=== PATIENT | male | born 1995 | race Caucasian/White ===

== ENCOUNTER 2016-10-05 21:09 | Emergency (ER) | payer OTHER ==
[~2016-10-05] VITALS: Ht 188 cm; Wt 184.5 kg
[~2016-10-05 21:09] MED LIST: BACTDS PO; CEPH-443 PO; HYDR-902 PO; IBUP-1542 PO; SULF1TAB7 PO; ULT50 PO; VIC PO; [UNRECOGNIZED DRUG - REMARK]
[2016-10-05 21:10] VITALS: Ht 188 cm; Wt 184.5 kg
[2016-10-05] MEDS ORDERED: CETI10CA PO (23:15)
[2016-10-05] MEDS ORDERED: ALBU8.5H3 INH (23:15)
[2016-10-05] MEDS ORDERED: FLUT9.9S NASAL (23:15)
--- NOTE | 2016-10-05 23:19 | ERD ---
ER Documentation Chief Complaint Date/Time DATE: 10/05/16 TIME: 23:16 Chief Complaint colds w/ on/off SOB x 2 days HPI Patient is a 21-year-old male who presents to the ED with allergies and cough for 2 days. He states that he has itchy watery eyes, runny nose, itchy throat and has mild shortness of breath. He states that he does have a history of asthma. He has been using an inhaler which has helped with his symptoms. He would like a refill on albuterol. He did not denies any chest pain, or difficulty breathing. Denies any leg pain or swelling. He denies any headache or dizziness. Denies any abdominal pain, nausea, vomiting or diarrhea. He is not taking any medications for his symptoms besides the albuterol. ROS All systems reviewed and are negative except as per history of present illness. Medications Home Meds Active Scripts Fluticasone Propionate (Flonase Allergy Relief) 9.9 Ml [place].susp, 1 SPRAY NASAL BID, #1 BOTTLE TO EACH NOSTRIL Prov:LANIE JESSICA PA-C 10/05/16 Cetirizine Hcl* (Zyrtec*) 10 Mg Capsule, 10 MG PO DAILY, #30 TAB.CHEW Prov:LANIE JESSICA PA-C 10/05/16 Albuterol Sulfate* (Proair HFA*) 8.5 Gm Hfa.aer.ad, 2 PUFF INH Q4, #1 INHALER Prov:LNAIE JESSICA PA-C 10/05/16 Hydrocodone/Acetaminophen ([place] 10-325 Tablet) 1 Each Tablet, 1 TAB PO Q6H Y for PAIN, #7 TAB Prov:SADIQ MULLINS NP 09/10/16 Tramadol HCl (Tramadol HCl) 50 Mg Tablet, 50 MG PO Q4 Y for PAIN, #10 TAB Prov:ADONAY FRANCO PA-C 09/05/16 Cephalexin* (Keflex*) 500 Mg Capsule, 500 MG PO QID for 7 Days, CAP Prov:ADONAY FRANCO PA-C 09/05/16 Sulfamethoxazole-Trimethoprim* (Bactrim* DS) 800-160 Mg Tab, 1 TAB PO BID for 7 Days, TAB Prov:ADONAY FRANCO PA-C 09/05/16 Cephalexin* (Keflex*) 500 Mg Capsule, 500 MG PO Q6 for 7 Days, CAP Prov:ROSHNI LEE PA-C 06/06/16 Sulfamethoxazole-Trimethoprim* (Bactrim* DS) 800-160 Mg Tab, 1 TAB PO BID, #10 TAB Prov:ROSHNI LEE PA-C 06/06/16 Hydrocodone/Acetaminophen ([place] 10-325 Tablet) 1 Each Tablet, 1 TAB PO Q6H Y for PAIN, #15 TAB Prov:KYLE CRAIG PA-C 06/04/16 Cephalexin* (Keflex*) 500 Mg Capsule, 500 MG PO QID for 7 Days, CAP Prov:KYLE CRAIG PA-C 06/04/16 Ibuprofen* (Motrin*) 600 Mg Tab, 600 MG PO Q6H Y for PAIN AND OR ELEVATED TEMP, #30 TAB Prov:KYLE CRAIG 06/04/16 Sulfamethoxazole-Trimethoprim* (Bactrim* DS) 800-160 Mg Tab, 1 TAB PO DAILY for 7 Days, TAB Prov:KYLE CRAIG 06/04/16 Reported Medications Acetaminophen/Hydrocodone (Vicodin) 1 Tab Tab, 1 TAB PO PRN 08/22/11 Sulfamethoxazole-Trimethoprim* (Bactrim* DS) 1 Tab Tab, 1 TAB PO BID 08/22/11 [Unk Meds Taken] No Conflict Check 08/21/11 Allergies Allergies: Coded Allergies: No Known Allergy (Unverified , 09/05/16) PMhx/Soc Anesthesia Reaction: No Hx Neurological Disorder: No Hx Respiratory Disorders: Yes (asthma) Hx Cardiac Disorders: No Hx Psychiatric Problems: No Hx Miscellaneous Medical Probl: Yes (ALLERGIES) Hx Alcohol Use: No Hx Substance Use: No Hx Tobacco Use: No Smoking Status: Current some day smoker FmHx Family History: No coronary disease, No diabetes, No other Physical Exam Vitals Vital Signs Date Time Temp Pulse Resp B/P Pulse Ox O2 Delivery O2 Flow Rate FiO2 10/05/16 21:10 97.9 81 18 124/61 97 Physical Exam GENERAL: Well-developed, well-nourished male. Appears in no acute distress. HEAD: Normocephalic, atraumatic. EYES: Pupils are equally reactive bilaterally. EOMs grossly intact. No conjunctival erythema. ENT: Moist mucous membranes. No uvula deviation. No kissing tonsils. No exudates. cobblestone pharynx NECK: Supple. No lymphadenopathy or thyromegaly. No meningismus. negative kernig. negative brudinski. LUNG: Clear to auscultation bilaterally. No rhonchi, wheezing, rales or coarse breath sounds. HEART: Regular rate and rhythm. No murmurs, rubs or gallops. ABDOMEN: No scars, ecchymosis or rashes noted. Soft, nontender, and nondistended. Positive bowel sounds in all four quadrants. No rebound tenderness , no guarding. (-) McBurneys point tenderness. No CVA tenderness. BACK: No midline tenderness. Extremities: Equal pulses bilaterally. No peripheral clubbing, cyanosis or edema. No unilateral leg swelling. NEUROLOGIC: Alert and oriented. Moving all four extremities. 5/5 strength in all extremities. Normal speech. Steady gait. negative carlyle sign. SKIN: Normal color. Warm and dry. No rashes or lesions. Capillary refill < 2 seconds Procedures/MDM ER COURSE: I kept the patient and/or family informed of laboratory and diagnostic imaging results throughout the emergency room course. EKG, MONITORS, & DIAGNOSTIC IMAGING: [place] [id number] Radiology Main Line: [phone] DIAGNOSTIC IMAGING REPORT Patient: ARYA LINN : 1995 Age: 21 Sex: M [id number] DOS: 10/05/16 2259 Ordering MD: LANIE JESSICA PA-C Location: FTE Room/Bed: PROCEDURE: XR Chest. CLINICAL INDICATION: Cough. TECHNIQUE: Single frontal view. COMPARISON: 08/23/2014. FINDINGS: The lungs are clear. The heart size is normal. There is no pleural effusion. There is no pneumothorax. IMPRESSION: 1. Normal chest radiograph. 2. No change from 08/23/2014. RPTAT: QQ .Neville Patel MD, MD Date Time Electronically viewed and signed by .Neville Patel MD, MD on 10/05/2016 23:26 .R/ CC: LANIE JESSICA PA-C : MEDICAL DECISION MAKING: This is a 21-year-old male who presents with runny nose, watery eyes, itchy throat.. Vital signs were reviewed. Patient is afebrile. Patient is not hypoxic. Patient is not toxic or ill-appearing. His pulse is 81, O2 sat 97, blood pressure 124/61. Patient likely has allergies. Low suspicion for pneumonia, PE, pneumothorax, ACS, epiglottitis, obstruction, TB, pertussis, meningitis, sepsis. I do not think a cardiac workup is necessary at this time as patient does not show signs of cardiac emergency. He has a very low heart score. He does not have any risk factors. Patient does not show signs of respiratory distress and I do not think he needs a breathing treatment at this time. DISCHARGE: At this time, patient is stable for discharge and outpatient management with no new complaints during the ER course. Patient was sent home with Flonase, Zyrtec and ProAir air albuterol. Patient will be discharged home with instructions to recheck for new or worsening symptoms such as fever, nausea, weakness, LOC and to follow up with primary care in the next 1-2 days. Patient was advised to return to the ER for any new or worsening symptoms. Plan was discussed and patient and/or family understands and agrees. Home instructions were given. Departure Diagnosis: Primary Impression: Cough Additional Impression: Seasonal allergies Allergic rhinitis trigger: unspecified Qualified Code: J30.2 - Seasonal allergic rhinitis, unspecified allergic rhinitis trigger Condition: Stable Patient Instructions: Allergic Rhinitis Additional Instructions: Call your primary care doctor TOMORROW for an appointment during the next 1-2 days.See the doctor sooner or return here if your condition worsens before your appointment time. LANIE JESSICA PA-C Oct 05, 2016 23:19
--- NOTE | 2016-10-05 23:26 | RADRPT ---
PROCEDURE: XR Chest. CLINICAL INDICATION: Cough. TECHNIQUE: Single frontal view. COMPARISON: 08/23/2014. FINDINGS: The lungs are clear. The heart size is normal. There is no pleural effusion. There is no pneumothorax. IMPRESSION: 1. Normal chest radiograph. 2. No change from 08/23/2014. RPTAT: QQ .Neville Patel MD, MD Date Time Electronically viewed and signed by .Neville Patel MD, MD on 10/05/2016 23:26 .R/
[2016-10-05 23:43] VITALS: BP 123/66; PULSE 71; RESP 18; TEMP 98.7
== END 2016-10-05 23:44 | disposition home or self-care (01) ==
LOC: FTE 21:09
DX: R05 Cough (principal); J30.2 Other seasonal allergic rhinitis; F17.210 Nicotine dependence, cigarettes, uncomplicated
CPT/HCPCS: 71010; Z7502

== ENCOUNTER 2017-03-23 13:50 | Emergency (ER) | payer OTHER ==
[~2017-03-23] VITALS: Ht 188 cm; Wt 183.5 kg
[~2017-03-23 13:50] MED LIST changes: +ALBU8.5H3 INH; +CETI10CA PO; +FLUT9.9S NASAL; +TRAM50TA2 PO; -ULT50 PO
[2017-03-23 13:54] VITALS: Ht 188 cm; Wt 183.5 kg
[2017-03-23] MEDS ORDERED: ONDANSETRON (ODT) 4 MG TAB ODT STA (14:53)
[2017-03-23] MEDS ORDERED: LIDOCAINE 2%/EPI MPF (SDV) 20 ML VIAL INJ STA (14:53)
[2017-03-23] MEDS ORDERED: CEPH-443 PO (14:56)
[2017-03-23] MEDS ORDERED: HYDR-902 PO (14:56)
[2017-03-23] MEDS ORDERED: SULF1TAB31 PO (14:56)
--- NOTE | 2017-03-23 14:57 | ERD ---
ER Documentation Chief Complaint Date/Time DATE: 03/23/17 TIME: 14:56 Chief Complaint re check on pilonidal abcess HPI Patient is a 21-year-old male who presents with a pilonidal cyst. He has had swelling to the upper part of his buttocks since Thursday. He started an old prescription for antibiotics on Thursday as well but it is getting worse. He tried to pop it himself but was able to get a small amount of fluid out. It has gotten worse and painful. ROS All systems reviewed and are negative except as per history of present illness. Medications Home Meds Active Scripts Hydrocodone/Acetaminophen ([place] 10-325 Tablet) 1 Each Tablet, 1 TAB PO Q6H Y for PAIN, #7 TAB Prov:TREY QUEEN MD 03/23/17 Sulfamethoxazole/Trimethoprim* (Bactrim Ds* Tablet) 1 Each Tablet, 1 TAB PO BID , #14 TAB Prov:TREY QUEEN MD 03/23/17 Cephalexin* (Keflex*) 500 Mg Capsule, 500 MG PO QID for 7 Days, CAP Prov:TREY QUEEN MD 03/23/17 Fluticasone Propionate (Flonase Allergy Relief) 9.9 Ml [place].susp, 1 SPRAY NASAL BID, #1 BOTTLE TO EACH NOSTRIL Prov:LANIE JESSICA PA-C 10/05/16 Cetirizine Hcl* (Zyrtec*) 10 Mg Capsule, 10 MG PO DAILY, #30 TAB.CHEW Prov:LANIE JESSICA PA-C 10/05/16 Albuterol Sulfate* (Proair HFA*) 8.5 Gm Hfa.aer.ad, 2 PUFF INH Q4, #1 INHALER Prov:LANIE JESSICA PA-C 10/05/16 Hydrocodone/Acetaminophen ([place] 10-325 Tablet) 1 Each Tablet, 1 TAB PO Q6H Y for PAIN, #7 TAB Prov:SADIQ MULLINS NP 09/10/16 Tramadol HCl (Tramadol HCl) 50 Mg Tablet, 50 MG PO Q4 Y for PAIN, #10 TAB Prov:ADONAY FRANCO PA-C 09/05/16 Cephalexin* (Keflex*) 500 Mg Capsule, 500 MG PO QID for 7 Days, CAP Prov:ADONAY FRANCO PA-C 09/05/16 Sulfamethoxazole-Trimethoprim* (Bactrim* DS) 800-160 Mg Tab, 1 TAB PO BID for 7 Days, TAB Prov:ADONAY FRANCO PA-C 09/05/16 Cephalexin* (Keflex*) 500 Mg Capsule, 500 MG PO Q6 for 7 Days, CAP Prov:ROSHNI LEE PA-C 06/06/16 Sulfamethoxazole-Trimethoprim* (Bactrim* DS) 800-160 Mg Tab, 1 TAB PO BID, #10 TAB Prov:ROSHNI LEE 06/06/16 Hydrocodone/Acetaminophen ([place] 10-325 Tablet) 1 Each Tablet, 1 TAB PO Q6H Y for PAIN, #15 TAB Prov:KYLE CRAIG 06/04/16 Cephalexin* (Keflex*) 500 Mg Capsule, 500 MG PO QID for 7 Days, CAP Prov:KYLE CRAIG 06/04/16 Ibuprofen* (Motrin*) 600 Mg Tab, 600 MG PO Q6H Y for PAIN AND OR ELEVATED TEMP, #30 TAB Prov:KYLE CRAIG 06/04/16 Sulfamethoxazole-Trimethoprim* (Bactrim* DS) 800-160 Mg Tab, 1 TAB PO DAILY for 7 Days, TAB Prov:KYLE CRAIG 06/04/16 Reported Medications Acetaminophen/Hydrocodone (Vicodin) 1 Tab Tab, 1 TAB PO PRN 08/22/11 Sulfamethoxazole-Trimethoprim* (Bactrim* DS) 1 Tab Tab, 1 TAB PO BID 08/22/11 [Unk Meds Taken] No Conflict Check 08/21/11 Allergies Allergies: Coded Allergies: No Known Allergy (Unverified , 09/05/16) PMhx/Soc Anesthesia Reaction: No Hx Neurological Disorder: No Hx Respiratory Disorders: Yes (asthma) Hx Cardiac Disorders: No Hx Psychiatric Problems: No Hx Miscellaneous Medical Probl: Yes (ALLERGIES) Hx Alcohol Use: No Hx Substance Use: No Hx Tobacco Use: No FmHx Family History: No diabetes Physical Exam Vitals Vital Signs Date Time Temp Pulse Resp B/P Pulse Ox O2 Delivery O2 Flow Rate FiO2 03/23/17 13:54 99.2 107 18 137/67 99 Physical Exam Const: Moderate distress secondary to pain Head: Atraumatic Eyes: Normal Conjunctiva ENT: Normal External Ears, Nose and Mouth. Neck: Full range of motion..~ No meningismus. Resp: Clear to auscultation bilaterally Cardio: Regular rate and rhythm, no murmurs Abd: Soft, non tender, non distended. Normal bowel sounds Skin: Pilonidal cyst with fluctuance Back: No midline or flank tenderness Ext: No cyanosis, or edema Neur: Awake and alert Psych: Normal Mood and Affect Results 24 hrs Current Medications Medications (Trade) Dose Ordered Sig/Justice Route PRN Reason Start Time Stop Time Status Last Admin Dose Admin Lidocaine/ Epinephrine (Xylocaine 2%/ Epi Mpf(Sdv)) 20 ml ONCE STAT INJ 03/23/17 14:53 03/23/17 14:55 DC Acetaminophen/ Hydrocodone Bitart ([place] (10/325)) 1 tab ONCE ONCE PO 03/23/17 15:00 03/23/17 15:01 Ondansetron HCl (Zofran Odt) 4 mg ONCE STAT ODT 03/23/17 14:53 03/23/17 14:55 DC Procedures/MDM Abscess Incision and Drainage with irrigation by me: Location: Pilonidal Anesthesia: Local 1% Lidocaine with epinephrine Technique: Irrigated. Disrupted loculations w/ instrumentation Packing: None Complications: Neurovascularly intact post procedure 48 hour wound check. Scar minimization instructions given. Patient's skin symptoms have stabilized while they have been evaluated in the department and are appropriate for outpatient care and work up. Exam and w/u not consistent w/ sepsis, deep space infection, or foreign body. Departure Diagnosis: Primary Impression: Pilonidal cyst Condition: Fair Patient Instructions: Pilonidal Cyst, Infected (Incision And Drainage) Referrals: COMMUNITY CLINICS YOU HAVE RECEIVED A MEDICAL SCREENING EXAM AND THE RESULTS INDICATE THAT YOU DO NOT HAVE A CONDITION THAT REQUIRES URGENT TREATMENT IN THE EMERGENCY DEPARTMENT. FURTHER EVALUATION AND TREATMENT OF YOUR CONDITION CAN WAIT UNTIL YOU ARE SEEN IN YOUR DOCTORS OFFICE WITHIN THE NEXT 1-2 DAYS. IT IS YOUR RESPONSIBILITY TO MAKE AN APPOINTMENT FOR FOLOW-UP CARE. IF YOU HAVE A PRIMARY DOCTOR --you should call your primary doctor and schedule an appointment IF YOU DO NOT HAVE A PRIMARY DOCTOR YOU CAN CALL OUR PHYSICIAN REFERRAL HOTLINE AT IF YOU CAN NOT AFFORD TO SEE A PHYSICIAN YOU CAN CHOSE FROM THE FOLLOWING [facility] [address] [facility]. [facility] [phone] [facility]. [facility] [address] [facility]. [facility] [address] [facility]. [facility] [phone] [facility]. [facility] [address] Additional Instructions: Call your primary care doctor TOMORROW for an appointment during the next 1-2 days.See the doctor sooner or return here if your condition worsens before your appointment time. TREY QUEEN MD Mar 23, 2017 14:57
[2017-03-23] MEDS ORDERED: HYDROCODONE/APAP (10/325) TAB PO ONE (15:00)
== END 2017-03-23 15:59 | disposition home or self-care (01) ==
LOC: FTE 13:50
DX: L05.01 Pilonidal cyst with abscess (principal); J45.909 Unspecified asthma, uncomplicated
CPT/HCPCS: 10080; Z7610

== ENCOUNTER 2017-04-28 18:37 | Emergency (ER) | payer OTHER ==
[~2017-04-28] VITALS: Ht 182.9 cm; Wt 186.0 kg
[~2017-04-28 18:37] MED LIST changes: +SULF1TAB31 PO
[2017-04-28 18:48] VITALS: Ht 182.9 cm; Wt 186.0 kg
--- NOTE | 2017-04-28 20:21 | ERD ---
ER Documentation Chief Complaint Date/Time DATE: 04/28/17 TIME: 20:17 Chief Complaint headache x 1 month HPI 21-year-old male presents to emergency department for complaints of headache for one month. Patient describes the headache as throbbing pain, 6/10 scale, accompanied with light sensitivity. Patient denies any head injury. Patient denies any nausea or vomiting. Patient denies any dizziness. Patient denies any blurry vision. Patient denies any numbness or tingling. Patient denies any fever or chills. Patient took Advil for pain with mild relief. ROS All systems reviewed and are negative except as per history of present illness. Medications Home Meds Active Scripts Hydrocodone/Acetaminophen ([place] 10-325 Tablet) 1 Each Tablet, 1 TAB PO Q6H Y for PAIN, #7 TAB Prov:TREY QUEEN MD 03/23/17 Sulfamethoxazole/Trimethoprim* (Bactrim Ds* Tablet) 1 Each Tablet, 1 TAB PO BID , #14 TAB Prov:TREY QUEEN MD 03/23/17 Cephalexin* (Keflex*) 500 Mg Capsule, 500 MG PO QID for 7 Days, CAP Prov:TREY QUEEN MD 03/23/17 Fluticasone Propionate (Flonase Allergy Relief) 9.9 Ml [place].susp, 1 SPRAY NASAL BID, #1 BOTTLE TO EACH NOSTRIL Prov:LANIE JESSICA PA-C 10/05/16 Cetirizine Hcl* (Zyrtec*) 10 Mg Capsule, 10 MG PO DAILY, #30 TAB.CHEW Prov:LANIE JESSICA PA-C 10/05/16 Albuterol Sulfate* (Proair HFA*) 8.5 Gm Hfa.aer.ad, 2 PUFF INH Q4, #1 INHALER Prov:LANIE JESSICA PA-C 10/05/16 Hydrocodone/Acetaminophen ([place] 10-325 Tablet) 1 Each Tablet, 1 TAB PO Q6H Y for PAIN, #7 TAB Prov:SADIQ MULLINS NP 09/10/16 Tramadol HCl (Tramadol HCl) 50 Mg Tablet, 50 MG PO Q4 Y for PAIN, #10 TAB Prov:ADONAY FRANCO PA-C 09/05/16 Cephalexin* (Keflex*) 500 Mg Capsule, 500 MG PO QID for 7 Days, CAP Prov:ADONAY FRANCO 09/05/16 Sulfamethoxazole-Trimethoprim* (Bactrim* DS) 800-160 Mg Tab, 1 TAB PO BID for 7 Days, TAB Prov:ADONAY FRANCO 09/05/16 Cephalexin* (Keflex*) 500 Mg Capsule, 500 MG PO Q6 for 7 Days, CAP Prov:ROSHNI LEE 06/06/16 Sulfamethoxazole-Trimethoprim* (Bactrim* DS) 800-160 Mg Tab, 1 TAB PO BID, #10 TAB Prov:ROSHNI LEE 06/06/16 Hydrocodone/Acetaminophen ([place] 10-325 Tablet) 1 Each Tablet, 1 TAB PO Q6H Y for PAIN, #15 TAB Prov:KYLE CRAIG 06/04/16 Cephalexin* (Keflex*) 500 Mg Capsule, 500 MG PO QID for 7 Days, CAP Prov:KYLE CRAIG 06/04/16 Ibuprofen* (Motrin*) 600 Mg Tab, 600 MG PO Q6H Y for PAIN AND OR ELEVATED TEMP, #30 TAB Prov:CRAIGKYLE GUZMAN 06/04/16 Sulfamethoxazole-Trimethoprim* (Bactrim* DS) 800-160 Mg Tab, 1 TAB PO DAILY for 7 Days, TAB Prov:KYLE CRAIG 06/04/16 Reported Medications Acetaminophen/Hydrocodone (Vicodin) 1 Tab Tab, 1 TAB PO PRN 08/22/11 Sulfamethoxazole-Trimethoprim* (Bactrim* DS) 1 Tab Tab, 1 TAB PO BID 08/22/11 [Unk Meds Taken] No Conflict Check 08/21/11 Allergies Allergies: Coded Allergies: No Known Allergy (Unverified , 09/05/16) PMhx/Soc Medical and Surgical Hx: pt denies Medical Hx, pt denies Surgical Hx History of Surgery: No Anesthesia Reaction: No Hx Neurological Disorder: No Hx Respiratory Disorders: No Hx Cardiac Disorders: No Hx Psychiatric Problems: No Hx Miscellaneous Medical Probl: No Hx Alcohol Use: No Hx Substance Use: No Hx Tobacco Use: No Smoking Status: Never smoker FmHx Family History: No coronary disease, No diabetes, No other Physical Exam Vitals Vital Signs Date Time Temp Pulse Resp B/P Pulse Ox O2 Delivery O2 Flow Rate FiO2 04/28/17 18:48 99.1 89 20 137/72 97 Physical Exam GENERAL: The patient is well developed and appropriate for usual state of health, in no apparent distress. CHEST: Clear to auscultation bilaterally. There are no rales, wheezes or rhonchi. HEART: Regular rate and rhythm. No murmurs, clicks, rubs or gallops. No S3 or S4. ABDOMEN: Soft, nontender and nondistended. Good bowel sounds. No rebound or guarding. No gross peritonitis. No gross organomegaly or masses. No Mcknight sign or McBurney point tenderness. BACK: No midline or flank tenderness. EXTREMITIES: Equal pulses bilaterally. There is no peripheral clubbing, cyanosis or edema. No focal swelling or erythema. Full range of motion. Grossly neurovascularly intact. NEURO: Alert and oriented. Cranial nerves 2-12 intact. Motor strength in all 4 extremities with 5/5 strength. Sensation grossly intact. Normal speech and gait. Negative Romberg sign. Negative pronator drip. SKIN: There is no apparent rash or petechia. The skin is warm and dry. HEMATOLOGIC AND LYMPHATIC: There is no evidence of excessive bruising or lymphedema. No gross cervical, axillary, or inguinal lymphadenopathy. Results 24 hrs Current Medications Medications (Trade) Dose Ordered Sig/Justice Route PRN Reason Start Time Stop Time Status Last Admin Dose Admin Acetam/Butalbital/ Caffeine/Codeine (Fioricet/ Codeine) 1 cap ONCE ONCE PO 04/28/17 20:30 04/28/17 20:31 DC 04/28/17 20:46 Patient was given medication for pain here in emergency department, after treatment, patient verbalized feeling much better. Patient's pain is improved. PROCEDURE: CT Brain without contrast. CLINICAL INDICATION: Headaches. TECHNIQUE: A CT of the brain was performed on multidetector high-resolution CT scanner utilizing axial sections from the skull base through the vertex without contrast. One or more of the following dose reduction techniques were used: Automated exposure control, Adjustment of the mA and/or kV according to patient size, and/or use of iterative reconstruction technique. DOSE: CTDI = 46 mGy and the DLP = 968 mGy-cm. 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 No acute intracranial hemorrhage, significant mass effect or midline shift. The albarran-white differentiation is grossly preserved. The ventricles are normal in size for age. Partially opacified left maxillary sinus. Leftward nasal septal deviation with bony spurring. Partially empty appearance of the sella turcica. IMPRESSION: No acute intracranial hemorrhage or significant mass effect. 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 Left maxillary sinus disease. RPTAT: AA .Devon Zheng MD, MD Date Time Electronically viewed and signed by .Devon Zheng MD, on 04/28/2017 20:41 .T/ CC: SADIQ MULLINS NP Procedures/MDM Medical Decision Making: Patient symptoms are consistent with migraine headache , possible tension headache. Patient also has opacified left maxillary sinus can be also causing the pain, will be treated with Zyrtec Flonase and Augmentin for this. There is an incidental finding of possible Chiari I malformation, most likely not causing any pain. There is low suspicion for neurological emergencies at this time since patients neurologic exam is normal. Patient did not have any altered level consciousness, vomiting, changes in balance or memory and did not have any head injury. Patients CT scan of the head does not show any neurological emergencies at this time. Rx: Fioricet with codeine, Augmentin, Flonase, Zyrtec Dispostion: Home. Stable Departure Diagnosis: Primary Impression: Headache Headache type: unspecified Headache chronicity pattern: acute headache Intractability: not intractable Qualified Code: R51 - Acute nonintractable headache, unspecified headache type Additional Impression: Sinusitis, acute, maxillary Recurrence: not specified as recurrent Qualified Code: J01.00 - Acute maxillary sinusitis, recurrence not specified Condition: Stable Patient Instructions: Acute Sinusitis, Self-Care for Headaches SADIQ MULLINS NP Apr 28, 2017 20:20
[2017-04-28] MEDS ORDERED: ACET/BUTAL/CAFF/CODEINE CAP PO ONE (20:30)
--- NOTE | 2017-04-28 20:42 | RADRPT ---
PROCEDURE: CT Brain without contrast. CLINICAL INDICATION: Headaches. TECHNIQUE: A CT of the brain was performed on multidetector high-resolution CT scanner utilizing a xial sections from the skull base through the vertex without contrast. One or more of the following dose reduction techniques were used: Automated exposure control, Adjustment of the mA and/or kV acc ording to patient size, and/or use of iterative reconstruction technique. DOSE: CTDI = 46 mGy and the DLP = 968 mGy-cm. 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 No acute intracranial hemor rhage, significant mass effect or midline shift. The albarran-white differentiation is grossly preserved . The ventricles are normal in size for age. Partially opacified left maxillary sinus. Leftward leisa al septal deviation with bony spurring. Partially empty appearance of the sella turcica. IMPRESSION: No acute intracranial hemorrhage or significant mass effect. 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 Left maxillary sinus disease. RPTAT: AA .Devon Zheng MD, MD Date Time Electronically viewed and signed by .Devon Zheng MD, on 04/28/2017 20:41 .T/
[2017-04-28] MEDS ORDERED: CETI10CA PO (20:56)
[2017-04-28] MEDS ORDERED: AMOX1TAB10 PO (20:56)
[2017-04-28] MEDS ORDERED: BUTA1CAP39 PO (20:56)
[2017-04-28] MEDS ORDERED: FLUT9.9S NASAL (20:56)
== END 2017-04-28 21:19 | disposition home or self-care (01) ==
LOC: FTE 18:37
DX: R51 Headache (principal); J01.00 Acute maxillary sinusitis, unspecified
CPT/HCPCS: 70450; Z7502; Z7610

== ENCOUNTER 2018-02-24 00:46 | Emergency (ER) | END 2018-02-24 04:19 | disposition home or self-care (01) ==

== ENCOUNTER 2018-02-26 14:58 | Emergency (ER) | END 2018-02-26 20:30 | disposition left against medical advice (07) ==

== ENCOUNTER 2018-07-23 05:35 | Emergency (ER) | END 2018-07-23 07:13 | disposition home or self-care (01) ==

== ENCOUNTER 2018-08-02 10:27 | Emergency (ER) | END 2018-08-02 12:00 | disposition home or self-care (01) ==

== ENCOUNTER 2018-10-03 14:03 | Emergency (ER) | payer OTHER ==
[~2018-10-03] VITALS: Ht 182.9 cm; Wt 201.2 kg
[~2018-10-03 14:03] MED LIST changes: +ACET1TAB40 PO; +ACET500T98 PO; -ALBU8.5H3 INH; +ALBU8.5H8 INH; +AMOX1TAB10 PO; +BUTA1CAP39 PO; +CLIN300C10 PO; +DOXY100T21 PO; +GUAI120S26 PO; +HYDR-3980 PO; +HYDR-4011 PO; -HYDR-902 PO; +IBUP800T48 PO
[2018-10-03 14:07] VITALS: BP 165/93; PULSE 111; RESP 22; Ht 182.9 cm; Wt 201.2 kg
[2018-10-03] MEDS ORDERED: CETI10TA34 PO (17:48)
[2018-10-03] MEDS ORDERED: HYDR28CR25 TP (17:48)
[2018-10-03] MEDS ORDERED: BEN50 PO (17:48)
--- NOTE | 2018-10-03 20:32 | ERD ---
ER Documentation Chief Complaint Chief Complaint jazz legs rash since thursday- c/o itching - denies SOB HPI 23-year-old presents for bilateral leg rash times 5 days. The rash is associated with itchiness. Patient denies any shortness of breath or fever. Patient denies chest pain, abdominal pain, nausea, vomiting. ROS All systems reviewed and are negative except as per history of present illness. Medications Home Meds Active Scripts Hydrocortisone (CORTIZONE-10) 28 Gm Cream..g., 1 APPLIC TP BID PRN for itchiness for 7 Days, #1 TUB Prov:ECHO BERNAL DO 10/03/18 Cetirizine Hcl* (Cetirizine Hcl*) 10 Mg Tab.chew, 10 MG PO DAILY PRN for ITCHING, #30 TAB Prov:ECHO BERNAL DO 10/03/18 Diphenhydramine Hcl* (Benadryl*) 50 Mg Cap, 50 MG PO Q6 PRN for ITCHING for 7 Days, #30 CAP Prov:ECHO BERNAL DO 10/03/18 Acetaminophen with Codeine (Acetaminophen-Cod #3 Tablet) 1 Each Tablet, 1 TAB PO Q6H PRN for PAIN, #7 TAB Prov:MEENA CAMPBELL MD 08/02/18 Ibuprofen* (Motrin*) 800 Mg Tab, 800 MG PO Q6, #20 TAB Prov:MEENA CAMPBELL MD 08/02/18 Doxycycline Monohydrate* (Doxycycline Monohydrate*) 100 Mg Tablet, 100 MG PO BID for 7 Days, TAB Prov:MEENA CAMPBELL MD 08/02/18 Ujysvzrcujy-K-Qnrvtakkng Hb* (Guaifenesin* DM Syrup) 120 Ml Syrup, 10 ML PO Q4H PRN for COUGH for 7 Days, #1 BOTTLE Prov:ECHO BERNAL DO 07/23/18 Albuterol Sulfate* (Proair HFA*) 8.5 Gm Hfa.aer.ad, 2 PUFF INH Q4H PRN for WHEEZING AND SOB, #1 INHALER Prov:ECHO BERNAL DO 07/23/18 Ibuprofen* (Motrin*) 600 Mg Tab, 600 MG PO Q6H PRN for fever/pain, #30 TAB Prov:ECHO BERNAL DO 07/23/18 Acetaminophen (Tylenol) 500 Mg Tab, 500 MG PO Q6H PRN for FEVER GREATER THAN 100.6, #30 TAB Prov:ECHO BERNAL DO 07/23/18 Hydrocodone/Acetaminophen (Check 5-325 Tablet) 1 Each Tablet, 1 TAB PO Q6H PRN for PAIN, #20 TAB Prov:LÁZARO COHEN MD 02/26/18 Cephalexin* (Keflex*) 500 Mg Capsule, 500 MG PO QID for 7 Days, #28 CAP Prov:LÁZARO COHEN MD 02/26/18 Sulfamethoxazole/Trimethoprim* (Bactrim Ds* Tablet) 1 Each Tablet, 1 TAB PO BID, #14 TAB Prov:LÁZARO COHEN MD 02/26/18 Tramadol HCl (Tramadol HCl) 50 Mg Tablet, 50 MG PO Q6 PRN for SEVERE PAIN LEVEL 7-10, #20 TAB Prov:SADIQ MULLINS NP 02/24/18 Ibuprofen* (Motrin*) 600 Mg Tab, 600 MG PO Q6H PRN for PAIN AND OR ELEVATED TEMP, #30 TAB Prov:SADIQ MULLINS NP 02/24/18 Clindamycin Hcl* (Clindamycin Hcl*) 300 Mg Capsule, 300 MG PO TID for 10 Days, CAP Prov:SADIQ MULLINS NP 02/24/18 Cetirizine Hcl* (Zyrtec*) 10 Mg Capsule, 10 MG PO DAILY, #30 TAB.CHEW Prov:SADIQ MULLINS NP 04/28/17 Fluticasone Propionate (Flonase Allergy Relief) 9.9 Ml Bloomer.susp, 1 SPRAY NASAL BID, #1 BOTTLE TO EACH NOSTRIL Prov:SADIQ MULLINS NP 04/28/17 Amoxicillin/Potassium Clav (Amox-Clav 875-125 mg Tablet) 875-125 mg Tab, 1 TAB PO BID for 10 Days, #20 TAB Prov:SADIQ MULLINS NP 04/28/17 Szdkcqsemthax-Cqannbsbdf-Ninkudvm-Codeine* (Fioricet w/ Codeine*) [id number]- 30MG Capsule, 1 CAP PO Q6H PRN for PAIN LEVEL 1-5, #20 CAP Prov:SADIQ MULLINS [employer] 04/28/17 Hydrocodone/Acetaminophen (Check 10-325 Tablet) 1 Each Tablet, 1 TAB PO Q6H PRN for PAIN, #7 TAB Prov:TREY QUEEN MD 03/23/17 Sulfamethoxazole/Trimethoprim* (Bactrim Ds* Tablet) 1 Each Tablet, 1 TAB PO BID, #14 TAB Prov:TREY QUEEN MD 03/23/17 Cephalexin* (Keflex*) 500 Mg Capsule, 500 MG PO QID for 7 Days, CAP Prov:TREY QUEEN MD 03/23/17 Fluticasone Propionate (Flonase Allergy Relief) 9.9 Ml Bloomer.susp, 1 SPRAY NASAL BID, #1 BOTTLE TO EACH NOSTRIL Prov:LANIE JESSICA PA-C 10/05/16 Cetirizine Hcl* (Zyrtec*) 10 Mg Capsule, 10 MG PO DAILY, #30 TAB.CHEW Prov:LANIE JESSICA PA-C 10/05/16 Albuterol Sulfate* (Proair HFA*) 8.5 Gm Hfa.aer.ad, 2 PUFF INH Q4, #1 INHALER Prov:LANIE JESSICA PA-C 10/05/16 Hydrocodone/Acetaminophen (Check 10-325 Tablet) 1 Each Tablet, 1 TAB PO Q6H PRN for PAIN, #7 TAB Prov:SADIQ MULLINS [employer] 09/10/16 Tramadol HCl (Tramadol HCl) 50 Mg Tablet, 50 MG PO Q4 PRN for PAIN, #10 TAB Prov:ADONAY FRANCO PA-C 09/05/16 Cephalexin* (Keflex*) 500 Mg Capsule, 500 MG PO QID for 7 Days, CAP Prov:ADONAY FRANCO PA-C 09/05/16 Sulfamethoxazole-Trimethoprim* (Bactrim* DS) 800-160 Mg Tab, 1 TAB PO BID for 7 Days, TAB Prov:ADONAY FRANCO PA-C 09/05/16 Cephalexin* (Keflex*) 500 Mg Capsule, 500 MG PO Q6 for 7 Days, CAP Prov:ROSHNI LEE PA-C 06/06/16 Sulfamethoxazole-Trimethoprim* (Bactrim* DS) 800-160 Mg Tab, 1 TAB PO BID, #10 TAB Prov:ROSHNI LEE PA-C 06/06/16 Hydrocodone/Acetaminophen (Check 10-325 Tablet) 1 Each Tablet, 1 TAB PO Q6H PRN for PAIN, #15 TAB Prov:KYLE CRAIG PA-C 06/04/16 Cephalexin* (Keflex*) 500 Mg Capsule, 500 MG PO QID for 7 Days, CAP Prov:KYLE CRAIG PA-C 06/04/16 Ibuprofen* (Motrin*) 600 Mg Tab, 600 MG PO Q6H PRN for PAIN AND OR ELEVATED TEMP, #30 TAB Prov:KYLE CRAIG PA-C 06/04/16 Sulfamethoxazole-Trimethoprim* (Bactrim* DS) 800-160 Mg Tab, 1 TAB PO DAILY for 7 Days, TAB Prov:KYLE CRAIG PA-C 06/04/16 Reported Medications Acetaminophen/Hydrocodone (Vicodin) 1 Tab Tab, 1 TAB PO PRN 08/22/11 Sulfamethoxazole-Trimethoprim* (Bactrim* DS) 1 Tab Tab, 1 TAB PO BID 08/22/11 [Unk Meds Taken] No Conflict Check 08/21/11 Allergies Allergies: Coded Allergies: No Known Allergy (Unverified , 09/05/16) PMhx/Soc History of Surgery: Yes (Appy) Anesthesia Reaction: No Hx Neurological Disorder: No Hx Respiratory Disorders: Yes (Asthma) Hx Cardiac Disorders: No Hx Psychiatric Problems: No Hx Miscellaneous Medical Probl: Yes (Pilonidal Cysts, LT FOOT FRACTURE) Hx Alcohol Use: Yes (OOC) Hx Substance Use: No Hx Tobacco Use: Yes Smoking Status: Current some day smoker Physical Exam Vitals Vital Signs Date Temp Pulse Resp B/P (MAP) Pulse Ox O2 O2 Flow FiO2 Time Delivery Rate 10/03/18 97.7 111 22 165/93 98 14:07 (117) Physical Exam Const: No acute distress Resp: Clear to auscultation bilaterally Cardio: Regular rate and rhythm, no murmurs Skin: Bilateral leg maculo-papular rash Back: No midline or flank tenderness Ext: No cyanosis, or edema Neur: Awake and alert Psych: Normal Mood and Affect Procedures/MDM Medical Decision Making: Differential diagnosis includes but not limited to viral illness, contact dermatitis, atopic dermatitis, cellulitis Patient appeared well on physical exam. Bilateral leg showed macular papular rash. Patient likely has viral illness. Medic treatment discussed with patient who agrees with plan. Prescription(s): Patient given prescription for hydrocortisone cream and cetirizine and Benadryl. . Patient advised to follow up with PCP in 1-2 days. Patient advised to return to ED for new or worsening symptoms. Patient stable on discharge from the ED. Disclaimer: Inadvertent spelling and grammatical errors are likely due to EHR/dictation software use and do not reflect on the overall quality of patient care. Also, please note that the electronic time recorded on this note does not necessarily reflect the actual time of the patient encounter. Departure Diagnosis: Primary Impression: Rash Condition: Fair Patient Instructions: Self-Care for Skin Rashes Referrals: [facility] YOU HAVE RECEIVED A MEDICAL SCREENING EXAM AND THE RESULTS INDICATE THAT YOU DO NOT HAVE A CONDITION THAT REQUIRES URGENT TREATMENT IN THE EMERGENCY DEPARTMENT. FURTHER EVALUATION AND TREATMENT OF YOUR CONDITION CAN WAIT UNTIL YOU ARE SEEN IN YOUR DOCTORS OFFICE WITHIN THE NEXT 1-2 DAYS. IT IS YOUR RESPONSIBILITY TO MAKE AN APPOINTMENT FOR FOLOW-UP CARE. IF YOU HAVE A PRIMARY DOCTOR --you should call your primary doctor and schedule an appointment IF YOU DO NOT HAVE A PRIMARY DOCTOR YOU CAN CALL OUR PHYSICIAN REFERRAL HOTLINE AT IF YOU CAN NOT AFFORD TO SEE A PHYSICIAN YOU CAN CHOSE FROM THE FOLLOWING [facility] [id number] [facility]. [facility] [address] [facility] [facility] [address] [facility] [facility] [address] [facility]. [facility] [address] [facility]. [facility]. [address] Additional Instructions: Call your primary care doctor TOMORROW for an appointment during the next 1-2 days.See the doctor sooner or return here if your condition worsens before your appointment time. ECHO BERNAL DO Oct 03, 2018 20:32
== END 2018-10-03 18:02 | disposition home or self-care (01) ==
LOC: FTE 14:03
DX: R21 Rash and other nonspecific skin eruption (principal); F17.210 Nicotine dependence, cigarettes, uncomplicated; J45.909 Unspecified asthma, uncomplicated
CPT/HCPCS: 99283